=== PATIENT | male | born 1960 | race Caucasian/White ===

== ENCOUNTER 2018-03-12 01:11 | Day surgery (SDC) | payer OTHER ==
[~2018-03-12] VITALS: Ht 180.3 cm; Wt 109.0 kg
[~2018-03-12 01:11] MED LIST: AMLO5 PO; ASPI81CH PO; ATOR20 PO; CARV25 PO; LISI20 PO; PRAZ2 PO
[2018-03-12] MEDS ORDERED: CLOP75 PO (09:06)
[2018-03-12] MEDS ORDERED: Aspir-Trin325 MG PO (09:07)
--- NOTE | 2018-03-12 14:09 | NUR ---
DISCHARGE PT REMAINED A&OX3. PT DENIED ANY PAIN DURING RECOVERY. PT ABLE TO AMUBLATE WITH EASE (NOTED A LIMP ON LEFT SIDE, PT STATES "IT IS A CHRONIC ISSUE"). IV DC'D WITH TIP IN TACT. TR BAND REMOVED, CLOTH DOT AND WHITE BOARD IN BSY[place]-D[place]-U[place] HEMATOMA NOTED. PT ABLE TO DRESS SELF INDEPENDANTLY. DISCHARGE EDUCAITON GONE OVER WITH PT, SISTER AND MOTHER. PT AND FAMILY STATED THE UNDERSTANDING OF THE DISCHARGE EDUCATION GIVEN. PT WHEELED OUT BY THIS NURSE WITH BELONGINGS./
[2018-03-14] MEDS ORDERED: ASPI81CH PO (12:30)
== END 2018-03-12 14:10 | disposition home or self-care (01) ==
LOC: MHTC 01:11
DX: R94.39 Abnormal result of other cardiovascular function study (principal); R07.9 Chest pain, unspecified; E78.5 Hyperlipidemia, unspecified; E66.01 Morbid (severe) obesity due to excess calories; J44.9 Chronic obstructive pulmonary disease, unspecified; Z79.82 Long term (current) use of aspirin; Z72.0 Tobacco use
CPT/HCPCS: 85347; 93458; 99152; 99153; C1725; C1769; C1876; C1887; C1894; C9600; J0360; J0461; J1644; J2250; J3010; J7030; Q9967